=== PATIENT | male | born 1995 | race Caucasian/White ===

== ENCOUNTER → 2021-08-27 | Outpatient (CLI) | payer OTHER | LOC: KOH-I 14:04 | DX: S60.10XA Contusion of unspecified finger with damage to nail, initial encounter (principal) | CPT/HCPCS: 73120 ==

== ENCOUNTER 2021-08-29 18:39 | Emergency (ER) | payer SELFPAY | END 2021-08-29 21:15 | disposition home or self-care (01) | LOC: ER1 18:39 | DX: S60.152A Contusion of left little finger with damage to nail, initial encounter (principal); Z23 Encounter for immunization; W23.0XXA Caught, crushed, jammed, or pinched between moving objects, initial encounter; Y92.89 Other specified places as the place of occurrence of the external cause; Y99.0 Civilian activity done for income or pay | CPT/HCPCS: 11740; 90471; 90715; 99283 ==